=== PATIENT | female | born 1990 | race Caucasian/White ===

== ENCOUNTER 2022-10-05 09:50 | Emergency (ER) | payer OTHER ==
[~2022-10-05] VITALS: Ht 177.8 cm; Wt 83.5 kg
[~2022-10-05 09:50] MED LIST: LIDEX0.05% T; MEDROL DOSEPAK4 MG PO
[2022-10-05 10:23] VITALS: BP 113/62
[2022-10-05] MEDS ORDERED: MAXALT MLT10 MG PO (11:45)
== END 2022-10-05 13:04 | disposition home or self-care (01) ==
LOC: ED 09:50
DX: G43.909 Migraine, unspecified, not intractable, without status migrainosus (principal); Z88.2 Allergy status to sulfonamides; Z88.5 Allergy status to narcotic agent

== ENCOUNTER 2022-10-08 22:00 | Emergency (ER) | payer OTHER ==
[~2022-10-08] VITALS: Ht 177.8 cm; Wt 83.9 kg
[~2022-10-08 22:00] MED LIST changes: +MAXALT MLT10 MG PO
[2022-10-08] MEDS ORDERED: OXYCODONE HCL5 MG PO (22:26)
[2022-10-08] MEDS ORDERED: RIZATRIPTAN10 M1 PO (22:26)
[2022-10-08] MEDS ORDERED: OMEPRAZOLE MAGN20 MG PO (22:27)
[2022-10-08] MEDS ORDERED: NYSTATIN15 GM T (22:27)
[2022-10-08] MEDS ORDERED: ARIPIPRAZOLE20 MG PO (22:27)
[2022-10-08] MEDS ORDERED: VYVANSE40 MG PO (22:27)
[2022-10-08] MEDS ORDERED: LEVOTHYROXINE150 MCG PO (22:28)
[2022-10-08] MEDS ORDERED: CLONAZEPAM0.5 M2 PO (22:28)
[2022-10-08] MEDS ORDERED: OXCARBAZEPINE300 M1 PO (22:28)
[2022-10-08 23:31] LABS: HEMATOCRIT 40.6 % (37.0-47.0); MEAN CELL VOLUME 93.1 fl (81.0-99.0); MEAN CORPUSCULAR HGB CONC 33.3 g/dl (33.0-37.0); PLATELET COUNT AUTOMATED 213 10*3/uL (130-400); RED BLOOD COUNT 4.36 10*6/uL (4.10-5.10); RED CELL DISTRI WIDTH 12.5 % (0-14.5); WHITE BLOOD COUNT 10.1 10*3/uL (4.8-10.8)
[2022-10-08 23:36] LABS: MANUAL DIFF REFLEX YES
[2022-10-08 23:50] LABS: PLATELET SUFFICIENCY NORMAL (NORMAL); TOTAL CELLS COUNTED 100 #CELLS
[2022-10-08 23:52] LABS: ALKALINE PHOSPHATASE 93 U/L (46-116); BUN 6 mg/dl (9-23); CHLORIDE 98 mmol/L (98-107); POTASSIUM 3.8 mmol/L (3.4-5.1); SGPT/ALT 64 U/L (10-49); TOTAL PROTEIN 6.6 gm/dL (6.0-8.0)
[2022-10-09 04:35] VITALS: BP 120/72
== END 2022-10-09 07:42 | disposition short-term general hospital (02) ==
LOC: ED 22:00
PROVIDERS: Student in an Organized Health Care Education/Training Program
DX: K65.9 Peritonitis, unspecified (principal); K91.89 Other postprocedural complications and disorders of digestive system; K56.7 Ileus, unspecified; Z88.2 Allergy status to sulfonamides; Z88.1 Allergy status to other antibiotic agents; Z88.5 Allergy status to narcotic agent; Z88.8 Allergy status to other drugs, medicaments and biological substances; Z20.822 Contact with and (suspected) exposure to COVID-19

== ENCOUNTER 2023-07-31 10:13 | Emergency (ER) | payer OTHER ==
[~2023-07-31] VITALS: Ht 177.8 cm; Wt 102.1 kg
[~2023-07-31 10:13] MED LIST changes: +ARIPIPRAZOLE20 MG PO; +CLONAZEPAM0.5 M2 PO; +LEVOTHYROXINE150 MCG PO; +NYSTATIN15 GM T; +OMEPRAZOLE MAGN20 MG PO; +OXCARBAZEPINE300 M1 PO; +OXYCODONE HCL5 MG PO; +RIZATRIPTAN10 M1 PO; +VYVANSE40 MG PO
[2023-07-31 10:47] LABS: BASO % 0.7 % (0.0-1.0); EOS # 0.1 10*3/uL (0.0-0.4); EOS % 1.6 % (1.0-4.0); LYMPH # 1.2 10*3/uL (1.3-4.4); LYMPH % 22.5 % (27.0-41.0); MEAN CELL VOLUME 92.2 fl (81.0-99.0); MEAN CORPUSCULAR HGB 30.5 pg (27.0-31.0); MEAN CORPUSCULAR HGB CONC 33.1 g/dl (33.0-37.0); MEAN PLATELET VOLUME 9.6 fl (9.6-12.3); MONO # 0.5 10*3/uL (0.1-1.0); MONO % 8.2 % (3.0-9.0); NEUT # 3.7 10*3/uL (2.3-7.9); NEUT % 66.8 % (47.0-73.0); PLATELET COUNT AUTOMATED 322 10*3/uL (130-400); RED BLOOD COUNT 4.23 10*6/uL (4.10-5.10); RED CELL DISTRI WIDTH 13.3 % (0-14.5); WHITE BLOOD COUNT 5.5 10*3/uL (4.8-10.8)
[2023-07-31 11:10] LABS: ALKALINE PHOSPHATASE 116 U/L (46-116); BUN 10 mg/dl (9-23); CHLORIDE 110 mmol/L (98-107); POTASSIUM 4.2 mmol/L (3.4-5.1); SGPT/ALT 12 U/L (5-49); TOTAL PROTEIN 6.9 gm/dL (6.0-8.0)
[2023-07-31] MEDS ORDERED: MELOXICAM15 MG PO (13:47)
== END 2023-07-31 14:28 | disposition home or self-care (01) ==
LOC: ED 10:13
PROVIDERS: Emergency Medicine
DX: S63.286A Dislocation of proximal interphalangeal joint of right little finger, initial encounter (principal); R51.9 Headache, unspecified; M54.2 Cervicalgia; F32.A Depression, unspecified; Z88.2 Allergy status to sulfonamides; Z88.1 Allergy status to other antibiotic agents; Z88.8 Allergy status to other drugs, medicaments and biological substances; Z98.890 Other specified postprocedural states; Z90.49 Acquired absence of other specified parts of digestive tract; V43.52XA Car driver injured in collision with other type car in traffic accident, initial encounter; Y93.89 Activity, other specified; Y92.481 Parking lot as the place of occurrence of the external cause; Y99.8 Other external cause status

== ENCOUNTER 2024-06-12 21:08 | Emergency (ER) | payer OTHER ==
[~2024-06-12] VITALS: Ht 170.2 cm; Wt 90.7 kg
[~2024-06-12 21:08] MED LIST changes: +MELOXICAM15 MG PO
[2024-06-12] MEDS ORDERED: LAMICTAL200 MG PO (21:22)
[2024-06-12] MEDS ORDERED: KLONOPIN1 M1 PO (21:23)
[2024-06-12] MEDS ORDERED: ABILIFY AS960 MG/3.2 IM (21:23)
[2024-06-12 21:24] LABS: BASO % 0.6 % (0.0-1.0); EOS # 0.1 10*3/uL (0.0-0.4); EOS % 1.3 % (1.0-4.0); HEMATOCRIT 42.1 % (37.0-47.0); LYMPH # 1.8 10*3/uL (1.3-4.4); LYMPH % 28.2 % (27.0-41.0); MEAN CELL VOLUME 93.3 fl (81.0-99.0); MEAN CORPUSCULAR HGB 30.6 pg (27.0-31.0); MEAN CORPUSCULAR HGB CONC 32.8 g/dl (33.0-37.0); MEAN PLATELET VOLUME 9.9 fl (9.6-12.3); MONO # 0.5 10*3/uL (0.1-1.0); MONO % 8.3 % (3.0-9.0); NEUT # 3.9 10*3/uL (2.3-7.9); NEUT % 61.4 % (47.0-73.0); PLATELET COUNT AUTOMATED 263 10*3/uL (130-400); RED BLOOD COUNT 4.51 10*6/uL (4.10-5.10); RED CELL DISTRI WIDTH 12.9 % (0-14.5); WHITE BLOOD COUNT 6.3 10*3/uL (4.8-10.8)
[2024-06-12] MEDS ORDERED: ATARAX,VISTARIL50 MG PO (21:24)
[2024-06-12] MEDS ORDERED: SAPHRIS5 M1 SL (21:25)
[2024-06-12] MEDS ORDERED: PRAZOSIN HCL2 MG PO (21:26)
[2024-06-12] MEDS ORDERED: Synthroid,Lev150 MCG PO (21:26)
[2024-06-12] MEDS ORDERED: HALDOL20 MG PO (21:26)
[2024-06-12] MEDS ORDERED: WELLBUTRIN SR100 MG PO (21:27)
[2024-06-12 21:42] LABS: ALKALINE PHOSPHATASE 96 U/L (46-116); BUN 7 mg/dl (9-23); CHLORIDE 109 mmol/L (98-107); POTASSIUM 3.6 mmol/L (3.4-5.1); SGPT/ALT 13 U/L (5-49); TOTAL PROTEIN 6.8 gm/dL (6.0-8.0)
[2024-06-12 21:44] LABS: ETHYL ALCOHOL < 3.0 mg/dl (<3)
[2024-06-12] MEDS ORDERED: SODIUM CHLORIDE 0.9% 1,000 ML IV ONE (21:55)
[2024-06-13 02:34] LABS: BILIRUBIN Negative (Negative); BLOOD Negative (Negative); CLARITY Clear (Clear); COLOR Yellow (Yellow); GLUCOSE Negative (Negative); KETONE Negative (Negative); LEUKO ESTERASE Negative (Negative); NITRITE Negative (Negative); PH 5.5 (4.5-8.0); UROBILINOGEN 0.2 E.U./dl (0.0-1.0)
[2024-06-13 02:42] LABS: URINE AMPHETAMINES Positive (1000ng/ml); URINE BARBITURATES Negative (200ng/ml); URINE BENZODIAZEPINES Positive (200ng/ml); URINE CANNABINOIDS (THC) Negative (50ng/ml); URINE COCAINE Negative (300ng/ml); URINE METHADONE Negative (300ng/ml); URINE OPIATES Negative (300ng/ml); URINE PHENCYCLIDINE Negative (25ng/ml)
[2024-06-13 02:48] LABS: BACTERIA 1+
[2024-06-13 07:18] VITALS: BP 109/67
== END 2024-06-13 12:36 | disposition short-term general hospital (02) ==
LOC: ED 21:08
PROVIDERS: Internal Medicine
DX: T43.592A Poisoning by other antipsychotics and neuroleptics, intentional self-harm, initial encounter (principal); Z88.2 Allergy status to sulfonamides; Z88.1 Allergy status to other antibiotic agents; Z88.8 Allergy status to other drugs, medicaments and biological substances; Z98.890 Other specified postprocedural states; Z90.49 Acquired absence of other specified parts of digestive tract; Y92.009 Unspecified place in unspecified non-institutional (private) residence as the place of occurrence of the external cause

== ENCOUNTER → 2024-10-11 | Outpatient (CLI) | payer OTHER ==
[~2024-10-11] MED LIST changes: +ABILIFY AS960 MG/3.2 IM; +ATARAX,VISTARIL50 MG PO; +HALDOL20 MG PO; +KLONOPIN1 M1 PO; +LAMICTAL200 MG PO; +PRAZOSIN HCL2 MG PO; +SAPHRIS5 M1 SL; +Synthroid,Lev150 MCG PO; +WELLBUTRIN SR100 MG PO
[2024-10-11 08:01] LABS: ALKALINE PHOSPHATASE 92 U/L (46-116); BUN 9 mg/dl (9-23); CHLORIDE 104 mmol/L (98-107); FREE T4 1.23 ng/dl (0.89-1.76); SGPT/ALT 19 U/L (5-49); TOTAL PROTEIN 7.2 gm/dL (6.0-8.0)
== END | disposition home or self-care (01) ==
LOC: LAB 07:06
PROVIDERS: ATTEND Neurological Surgery
DX: E23.6 Other disorders of pituitary gland (principal)

== ENCOUNTER → 2024-11-17 | Outpatient (CLI) | payer OTHER | END | disposition home or self-care (01) | LOC: LAB 08:23 | PROVIDERS: ATTEND Nurse Practitioner Family | DX: F41.1 Generalized anxiety disorder (principal) ==

== ENCOUNTER → 2024-12-29 | Outpatient (CLI) | payer OTHER | END | disposition home or self-care (01) | LOC: US 12:19 | PROVIDERS: ATTEND Internal Medicine Endocrinology, Diabetes & Metabolism | DX: K76.89 Other specified diseases of liver (principal); E16.2 Hypoglycemia, unspecified; Z90.49 Acquired absence of other specified parts of digestive tract ==

== ENCOUNTER → 2025-01-30 | Outpatient (CLI) | payer OTHER ==
[2025-01-30 13:02] LABS: BASO # 0.1 10*3/uL (0.0-0.1); BASO % 0.8 % (0.0-1.0); EOS # 0.2 10*3/uL (0.0-0.4); HEMATOCRIT 41.3 % (37.0-47.0); MEAN CELL VOLUME 94.5 fl (81.0-99.0); MEAN CORPUSCULAR HGB 30.4 pg (27.0-31.0); MEAN CORPUSCULAR HGB CONC 32.2 g/dl (33.0-37.0); MEAN PLATELET VOLUME 10.1 fl (9.6-12.3); MONO # 0.5 10*3/uL (0.1-1.0); NEUT % 67.4 % (47.0-73.0); PLATELET COUNT AUTOMATED 360 10*3/uL (130-400); RED BLOOD COUNT 4.37 10*6/uL (4.10-5.10); RED CELL DISTRI WIDTH 13.1 % (0-14.5); WHITE BLOOD COUNT 7.4 10*3/uL (4.8-10.8)
[2025-01-30 13:24] LABS: ALKALINE PHOSPHATASE 79 U/L (46-116); BUN 11 mg/dl (9-23); CHLORIDE 104 mmol/L (98-107); POTASSIUM 4.1 mmol/L (3.4-5.1); SGPT/ALT 16 U/L (5-49); TOTAL PROTEIN 6.9 gm/dL (6.0-8.0)
[2025-01-30 14:26] LABS: VITAMIN D, 25-HYDROXY 38.3 ng/mL (30-100)
== END | disposition home or self-care (01) ==
LOC: LAB 12:21
PROVIDERS: Student in an Organized Health Care Education/Training Program; ATTEND Family Medicine
DX: Z98.84 Bariatric surgery status (principal)

== ENCOUNTER → 2025-03-02 | Outpatient (CLI) | payer OTHER ==
[2025-03-02 08:52] LABS: BASO % 0.7 % (0.0-1.0); EOS # 0.2 10*3/uL (0.0-0.4); EOS % 3.2 % (1.0-4.0); HEMATOCRIT 41.8 % (37.0-47.0); MEAN CELL VOLUME 95.9 fl (81.0-99.0); MEAN CORPUSCULAR HGB 31.2 pg (27.0-31.0); MEAN CORPUSCULAR HGB CONC 32.5 g/dl (33.0-37.0); MEAN PLATELET VOLUME 9.8 fl (9.6-12.3); MONO # 0.3 10*3/uL (0.1-1.0); MONO % 5.8 % (3.0-9.0); NEUT # 3.7 10*3/uL (2.3-7.9); NEUT % 66.5 % (47.0-73.0); PLATELET COUNT AUTOMATED 277 10*3/uL (130-400); RED BLOOD COUNT 4.36 10*6/uL (4.10-5.10); RED CELL DISTRI WIDTH 13.1 % (0-14.5); WHITE BLOOD COUNT 5.6 10*3/uL (4.8-10.8)
[2025-03-02 09:21] LABS: ALKALINE PHOSPHATASE 73 U/L (46-116); BUN 9 mg/dl (9-23); CHLORIDE 104 mmol/L (98-107); CHOLESTEROL 234 mg/dL (<200); LDL CHOLESTEROL 150 mg/dL (9-159); POTASSIUM 3.9 mmol/L (3.4-5.1); SGPT/ALT 11 U/L (5-49); TOTAL PROTEIN 6.5 gm/dL (6.0-8.0); TRIGLYCERIDES 51 mg/dl (<150)
== END | disposition home or self-care (01) ==
LOC: LAB 08:36
PROVIDERS: ATTEND Nurse Practitioner Family
DX: F41.1 Generalized anxiety disorder (principal)